=== PATIENT | female | born 1990 | race Caucasian/White ===

== ENCOUNTER 2023-08-04 10:41 | Emergency (ER) | payer BC, SELFPAY ==
[2023-08-04 10:55] VITALS: BP 147/89
--- NOTE | 2023-08-04 11:23 | ED.GENMED ---
History of Present Illness
General
Chief Complaint: Rabies
Source: patient
Time Seen by Provider: 08/04/23 11:21
Travel History
Have you had any contact with someone who has COVID-19?: No
Do you have any symptoms of coronavirus? Fever > 100 degrees, chills, cough, shortness of breath, sore throat, loss of taste or smell, muscle aches, or headache?: No
History of Present Illness
History of Present Illness:
33-year-old female presenting to the emergency department for second rabies vaccine. She reports she was exposed to a potentially rabid cat. Cat is still currently undergoing testing at this time. Patient notes that she got her first dose at an
outside hospital as she is currently traveling. She has no physical concerns at this time.
Past History
Past History
ED Past Medical History: Valvular disease and Other (MCP, PCO S, traumatic pneumothorax)
ED Past Surgical History: Other
Social History
Tobacco: Other (occassional tobacco)
Alcohol: Occasional
Drug: None
Personal: Single
Employment: Employed
Family History
Family History: Negative Diabetes or Hypertension
Review of Systems
Review of Systems
All Other Systems: ROS reviewed and negative except as documented in HPI and ROS
Phy Exam
Physical Exam
Physical Exam:
GENERAL: Alert , in no apparent distress
EYE: conjunctiva clear
Head: Normocephalic atraumatic
NECK: Supple,
ENT: mmm.
LUNGS: no acute respiratory distress
NEUROLOGICAL: Alert and oriented
SKIN: Warm and dry, skin intact.
MUSCULOSKELETAL: well perfused.
PSYCH: Normal and appropriate interaction.
Scores
Heart Failure Risk
Heart Failure Risk Score: Not Applicable
Heart Score for Chest Pain Patients
STEMI patient?: Not applicable
Withdrawal Assessment of Alcohol
Withdrawal Assessment Completed?: Not applicable
Course
Orders/Labs/Results
Orders:
Orders
08/04/23 11:30
Rabies Vaccine ([facility])/Pf [Rabavert Rabies Vacc W-Diluent] 2.5 unit IM .ONCE ONE
Vital Signs
Initial and Last Documented VS:
Initial Vital Signs
Temp Pulse Resp BP Pulse Ox
98.9 F 73 16 147/89 99
08/04/23 10:55 08/04/23 10:55 08/04/23 10:55 08/04/23 10:55 08/04/23 10:55
Last Documented Vital Signs
Temp Pulse Resp BP Pulse Ox
98.9 F 73 16 147/89 99
08/04/23 10:55 08/04/23 10:55 08/04/23 10:55 08/04/23 10:55 08/04/23 10:55
MDM/Problems Addressed
MDM/Problems Addressed:
33-year-old female presenting back to the emergency department for second rabies vaccine. Will dose this vaccine. She was given a to go to outpatient infusion center for remaining dosages. Otherwise stable for discharge home and aware of return
precautions to the ER
*Pulse Oximetry
Patient hypoxic: no
*Critical Care Note
Total Time (30-74mins, 75-104mins- exclusive of procedures): Not Applicable
ED Attending Note
-
Portions of this chart may have been created with voice recognition software.� Occasional wrong word or��sound alike� substitutions may have occurred due to the inherent limitations of voice recognition software.
Discharge Plan
Departure
Patient Disposition: Home (Routine Discharge)
Date of Disposition: 08/04/23
Time of Disposition: 11:23
Patient with high blood pressure during this ER visit?: Yes
Discharge Problem:
Encounter for immunization
Instructions: Rabies
Prescriptions:
No Action
penicillin V potassium 500 MG tablet
500 mg PO Q6 Qty: 28 0RF
acetaminophen [Tylenol Extra Strength] 500 MG tablet
1,000 mg PO Q6HPRN PRN (Reason: fever, pain)
cyanocobalamin (vitamin B-12) 1,000 MCG tablet
1,000 mcg PO DAILY
ferrous sulfate [FeroSul] 325 MG tablet
325 mg PO DAILY
garlic [garlic oil] 1 CAP capsule
1 cap PO DAILY
loratadine 10 MG tablet
10 mg PO DAILY
charlene (Zingiber officinalis) 550 MG capsule
550 mg PO DAILY
calcium carbonate-vitamin D3 [Oyster Shell Calcium-Vit D3] 500 MG tablet
500 mg PO DAILY
multivitamin with folic acid [Tab-A-Tang] 1 TABLET tablet
1 tab PO DAILY
turmeric-turmeric ext-pepper 1 EACH capsule
1 ea PO DAILY
elderberry fruit and flower 1 EACH capsule
1 ea PO DAILY
valacyclovir [Valtrex] 1,000 MG tablet
1,000 mg PO BID Qty: 14 0RF
Referrals:
Mimi Campbell DO [Family Provider] -
Stand Alone Forms: Rabies Vaccine Post Exp Dosing
Interventions
Interventions:
*Risk Screen - Suicide Last Done: 08/04/23 10:56
*General Assessment Last Done: 08/04/23 10:56
*Neglect/Abuse Screening Last Done: 08/04/23 10:56
*ED COVID-19 Vaccine History Last Done: 08/04/23 10:56
*Nursing Disposition Last Done: 08/04/23 12:17
Discharge Date and Time
Discharge Date/Time: 08/04/23 12:18
Print Language: SAMMARINESE
[2023-08-04] MEDS: RABAVERT RABIES VACC W-DILUENT 2.5 UNIT IM (11:58)
== END 2023-08-04 12:18 | disposition home or self-care (01) ==
LOC: EMR 10:41
PROVIDERS: EMERGENCY PHYSICIAN Emergency Medicine; FAMILY PHYSICIAN Student in an Organized Health Care Education/Training Program
DX: Z23 Encounter for immunization (principal); Z20.3 Contact with and (suspected) exposure to rabies; I38 Endocarditis, valve unspecified
CPT/HCPCS: 99282; 90471; 90675

== ENCOUNTER → 2023-08-14 09:29 | Outpatient (REF) | payer BC, SELFPAY ==
[2023-08-14 10:55] LABS: % Basophils 1.3 % (0-2); % Eosinophils 3.3 % (0-6); % Immature Granulocytes 0.4 % (0-0.5); % Lymphocytes 25.8 % (20.5-51.1); % Monocytes 6.7 % (1.7-9.3); % Neutrophils 62.5 % (42.2-75.2); Absolute Basophils 0.1 10^3/uL (0-0.2); Absolute Eosinophils 0.3 10^3/uL (0-0.7); Absolute Monocytes 0.5 10^3/uL (0.1-0.6); Hematocrit 41.9 % (37.0-47.0); Hemoglobin 14.3 g/dL (12.0-16.0); Mean Corp Hgb Conc. 34.1 g/dL (33.0-37.0); Mean Corpuscular Volume 90.7 fL (81.0-99.0); Mean Platelet Volume 10.3 fL (7.4-10.4); Nucleated Red Blood Cells % 0 %; Platelet Count 311 10^3/uL (130-400); Red Blood Cell Count 4.62 10^6/uL (4.20-5.40); Red Cell Dist. Width 12.3 % (11.5-14.5); White Blood Cell Count 7.9 10^3/uL (4.8-10.8)
[2023-08-14 11:22] LABS: Absolute Neutrophils -Man Diff 4.5 10^3/uL (1.4-6.5); Band Neutrophils 0 % (0-3); Eosinophils 6 % (0-6); Lymphocytes 30 % (20-51); Monocytes 7 % (2-9); Platelets Checked Yes; Segmented Neutrophils 57 % (42-75)
[2023-08-14 11:25] LABS: Anisocytosis Slight; Normal RBC Morphology Yes
[2023-08-14 11:26] LABS: Poikilocytosis Slight; Total Cells Counted 100
[2023-08-14 11:51] LABS: ALT (SGPT) 36 U/L (0-35); AST (SGOT) 32 U/L (14-36); Albumin 4.6 g/dl (3.5-5.0); Alkaline Phosphatase 65 U/L (38-126); Blood Urea Nitrogen 14 mg/dl (7-17); Calcium 9.9 mg/dl (8.4-10.2); Carbon Dioxide 25 mmol/L (22-30); Chloride 104 mmol/L (98-107); Glucose 80 mg/dl (70-99); Potassium 4.4 mmol/L (3.5-5.1); Sodium 138 mmol/L (135-145); Total Bilirubin 0.6 mg/dl (0.2-1.3); Total Protein 7.1 g/dl (6.3-8.2); eGFR > 60.00
[2023-08-14 12:09] LABS: FSH 1.1 mIU/ml; Free T4 0.76 ng/dl (0.78-2.19); Luteinizing Hormone 1.48 mIU/ml; Prolactin 19.5 ng/ml (3.0-18.6)
[2023-08-14 12:23] LABS: TSH 1.17 uIU/ml (0.47-4.68)
[2023-08-14 12:25] LABS: Cortisol, Random 7.7 ug/dl
[2023-08-16 06:03] LABS: IGF-1 Z Score Calculation 1.9; Insulin-like Growth Factor I 306 ng/mL (87-286)
== END ==
LOC: REG 09:29
PROVIDERS: ATTENDING PHYSICIAN Internal Medicine Endocrinology, Diabetes & Metabolism; FAMILY PHYSICIAN Student in an Organized Health Care Education/Training Program
DX: E28.39 Other primary ovarian failure (principal); L68.0 Hirsutism; R63.5 Abnormal weight gain
CPT/HCPCS: 36415; 80053; 82533; 83001; 83002; 84146; 84305; 84439; 84443; 85025

== ENCOUNTER → 2023-10-31 11:06 | Outpatient (REF) | payer BC, SELFPAY ==
[2023-10-31 13:47] LABS: Free T4 0.96 ng/dl (0.78-2.19); Prolactin 16.2 ng/ml (3.0-18.6)
[2023-10-31 14:01] LABS: TSH 0.75 uIU/ml (0.47-4.68)
[2023-11-03 03:18] LABS: IGF-1 Z Score Calculation 1.2; Insulin-like Growth Factor I 246 ng/mL (87-286)
== END ==
LOC: REG 11:06
PROVIDERS: ATTENDING PHYSICIAN Internal Medicine Endocrinology, Diabetes & Metabolism
DX: E28.39 Other primary ovarian failure (principal); E34.9 Endocrine disorder, unspecified; E03.8 Other specified hypothyroidism
CPT/HCPCS: 36415; 84146; 84305; 84439; 84443

== ENCOUNTER → 2024-12-21 09:15 | Outpatient (REF) | payer BC, SELFPAY ==
[2024-12-21 11:29] LABS: Cortisol, Random 19.4 ug/dl
[2024-12-21 11:41] LABS: ALT (SGPT) 30 U/L (0-35); AST (SGOT) 25 U/L (14-36); Albumin 4.5 g/dl (3.5-5.0); Alkaline Phosphatase 49 U/L (38-126); Blood Urea Nitrogen 11 mg/dl (7-17); Calcium 9.7 mg/dl (8.4-10.2); Carbon Dioxide 27 mmol/L (22-30); Chloride 105 mmol/L (98-107); Glucose 84 mg/dl (70-99); Potassium 4.5 mmol/L (3.5-5.1); Sodium 138 mmol/L (135-145); Total Protein 7.1 g/dl (6.3-8.2); eGFR > 60.00
== END ==
LOC: REG 09:15
PROVIDERS: ATTENDING PHYSICIAN Internal Medicine Endocrinology, Diabetes & Metabolism
DX: E03.8 Other specified hypothyroidism (principal); E28.39 Other primary ovarian failure
CPT/HCPCS: 36415; 80053; 82533; 83930; 83935

== ENCOUNTER → 2025-02-11 08:47 | Outpatient (REF) | payer BC, SELFPAY ==
[2025-02-11 09:57] LABS: Hematocrit 44.9 % (37.0-47.0); Hemoglobin 14.5 g/dL (12.0-16.0); Mean Corp Hgb Conc. 32.3 g/dL (33.0-37.0); Mean Corpuscular Volume 93.7 fL (81.0-99.0); Nucleated Red Blood Cells % 0 %; Platelet Count 352 10^3/uL (130-400); Red Cell Dist. Width 12.0 % (11.5-14.5)
[2025-02-11 10:09] LABS: HCG, Urine Qualitative Screen Negative
[2025-02-11 10:36] LABS: ALT (SGPT) 48 U/L (0-35); AST (SGOT) 34 U/L (14-36); Albumin 4.7 g/dl (3.5-5.0); Alkaline Phosphatase 55 U/L (38-126); Blood Urea Nitrogen 11 mg/dl (7-17); Calcium 9.8 mg/dl (8.4-10.2); Carbon Dioxide 29 mmol/L (22-30); Chloride 103 mmol/L (98-107); Glucose 79 mg/dl (70-99); Potassium 4.4 mmol/L (3.5-5.1); Sodium 137 mmol/L (135-145); Total Protein 7.4 g/dl (6.3-8.2); eGFR > 60.00
[2025-02-11 10:51] LABS: FSH 6.2 mIU/ml
[2025-02-11 11:06] LABS: TSH 1.22 uIU/ml (0.47-4.68)
[2025-02-11 11:07] LABS: Cortisol, Random 24.0 ug/dl
== END ==
LOC: REG 08:47
PROVIDERS: ATTENDING PHYSICIAN Internal Medicine Endocrinology, Diabetes & Metabolism; FAMILY PHYSICIAN Family Medicine
DX: E03.8 Other specified hypothyroidism (principal); L68.0 Hirsutism; R63.5 Abnormal weight gain; E28.39 Other primary ovarian failure; Z01.818 Encounter for other preprocedural examination
CPT/HCPCS: 80053; 81025; 82533; 82670; 83001; 83002; 84146; 84305; 84439; 84443; 85025